=== PATIENT | female | born 1975 | race Caucasian/White ===

== ENCOUNTER → 2017-07-16 | Outpatient (CLI) | payer OTHER ==
[~2017-07-16] MED LIST: AMITIZA8 MCG; COLCRYS0.6 MG PO; NAPROSYN500 M1 PO; PRISTIQ50 MG PO; TOPAMAX200 MG PO; XANAX 0.5MG TA0.5 MG
[2017-07-16 14:59] LABS: HEMOGLOBIN 15.4 g/dL (12.2-16.2); LYMPH # 3.2 K/mm3 (0.7-4.5); LYMPH % 29.3 % (10-50.0)
[2017-07-16 18:27] LABS: BUN 18 mg/dL (7-18)
[2017-07-16 18:31] LABS: GFR (ESTIMATED) 69 ML/MIN (59-)
[2017-07-18 08:39] LABS: Vitamin D, 25-Hydroxy 27.6 ng/mL (30.0-100.0)
== END ==
LOC: LAB 14:44
PROVIDERS: Internal Medicine Gastroenterology
DX: R19.4 Change in bowel habit (principal); K59.00 Constipation, unspecified; K30 Functional dyspepsia